=== PATIENT | male | born 1945 | race Caucasian/White ===

== ENCOUNTER 2018-01-08 17:50 | Inpatient (IN) | payer MEDICARE, OTHER ==
[~2018-01-08] VITALS: Ht 172.7 cm; Wt 63.5 kg
[2018-01-08 18:40] VITALS: BP 146/112
--- NOTE | 2018-01-08 18:40 | NUR ---
PRE ASSESSMENT: A 72 YO male in intake. He presents restless and fidgety. He reports chills restlessness and anxiety. He states he had an accidental overdose on Methadone on 01/03 in the afternoon and is unsure how much he took PO. He states he woke up on a 5150 at [facility] and came here tonight straight from from the hospital. He states he uses 40-80 mg Methadone daily for the last 6 months He states he uses Xanax or Valium daily PO but hasn't used either since 01/02 in the afternoon. He has used Heroin since the 70s and has not used Heroin in 10 years.Prior to the Methadone use for the he has been using Opiates in pill form and Subutex. He also reports using the Valium or Xanax for the last 10 years. He states they gave him Ativan and [place] in the hospital. Last doses in AM on 01/07/18. He denies any other drug use. He denies Sz history. He denies DT hx. He reports HTN. Will endorse admission to assistant shift supervisor nurse.
[2018-01-08] MEDS ORDERED: LORAZEPAM 2 MG/1 ML VIAL IM PRN (18:45)
[2018-01-08] MEDS ORDERED: DIAZEPAM 5 MG TABLET PO PRN (18:45)
[2018-01-08] MEDS ORDERED: diphenhydrAMINE 50 MG CAPSULE PO PRN (18:45)
[2018-01-08] MEDS ORDERED: MIRALAX 17 GM POWD.PACK PO PRN (18:45)
[2018-01-08] MEDS ORDERED: MAGNESIUM HYDROXIDE 30 ML LIQUID UDC PO PRN (18:45)
[2018-01-08] MEDS ORDERED: HYDROXYZINE PAMOATE 25 MG CAPSULE PO PRN (18:45)
[2018-01-08] MEDS ORDERED: MAG HYDROX/AL HYDROX/SIMETH 30 ML LIQUID UDC PO PRN (18:45)
[2018-01-08] MEDS ORDERED: BUPRENORPHINE HCL 2 MG TAB.SUBL SL PRN (18:45)
[2018-01-08] MEDS ORDERED: DIAZEPAM 10 MG TABLET PO PRN (18:45)
[2018-01-08] MEDS ORDERED: ACETAMINOPHEN 325 MG TABLET PO PRN (18:45)
[2018-01-08] MEDS ORDERED: LOPERAMIDE HCL 2 MG CAPSULE PO PRN ×2 (18:45)
--- NOTE | 2018-01-08 19:30 | NUR ---
ADMISSION NOTE: Patient is a 72 y.o male admitted at [facility] at approximately 1840pm of 01/08/18 for medically supervised withdrawal from Methadone, Valium & Xanax use. Body search done and skin check performed by day shift nurse, no contraband found. Skin noted to be intact. Patient is oriented to floor unit and room. Patient is on a cardiac diet with no known food and drug allergies. Pt wishes to be full Code. Pt is noted to be moderately withdrawing from substances. Patient is alert & oriented x3, ambulatory with a steady gait. Speech is soft, clear and audible. Patient presented with a flushed face, worried affect, and anxious and depressed mood. Pt has poor eye contact and poor concentration. Skin is moist/clammy. He complains of chills, 8/10 generalized body aches, stuffy nose, diarrhea & fine tremors. Pt denies halluciantions, no chest pain noted at this time. COWS 16 CIWA 16 upon assessment. Pt has a primary care physician Dr. Dc. Pt reports medical history such as Depression, Hypertension, Chronic Back pain, Scoliosis, & Hx of Hepatits C but has been treated for it. Pt denies hx of withdrawal induced seizure. No history of DT's. Pt denies hx of suicide attempt but according to [facility] discharge Notes, pt attempted suicide by overdosing from methadone use on 01/03/18 and then was placed on 5150 psychiatric hold. Pt currently denies SI/HI. Pt was able to provide urine sample for drug screen upon admission. Substance use: 1. Methadone- Pt stated that he first had Methadone at around 21 yrs old. Patient uses 40-80mg of Methadone daily for the past 6 months. Last use was on 01/03/18 where he used over 100mg of Methadone and overdosed. 2. Xanax/Valium- Pt stated that in the past 10 years, pt has been taking either Xanax 2mg or Valium 10mg alternately whichever is available daily. He last used Valium 10mg on 01/02/18. 3. [place]- Pt was medicated with [place] 10/325 mg while in [facility]. He last took 1 tab of [place] 10/325 on 01/07/18. 4. Ativan- Pt was medicated with Ativan 1mg tab while in [facility]. He last took Ativan on 01/07/18. Pt stated that she decided to come to treatment because "I accidentally overdosed from Methadone and woke up on a 5150 hold, I am here because I don't want to ". Per pt, the consequences from using were "relationship going south, financial problems and overdoses". His last treatment was back in 1975 at [facility] [place]. Per patient, his longest period of sobriety was 3 years from 8823-2016. Patient is an occasional smoker and only smokes 1-2 cigarrettes at a time. Fall & Seizure precautions are in place. Will attend to all needs. Educated patient about plan of care including detox, group therapy, individual therapy, and discharge planning. Encouraged patient to verbalized feelings. Safety precautions are in place. Bed locked in lowest position. Both side rails padded & up. Call light within pt's reach. Will continue to monitor.
[2018-01-08] MEDS: CLONIDINE HCL 0.1 MG TABLET PO PRN (19:45)
[2018-01-08] MEDS: IBUPROFEN 600 MG TABLET PO PRN (19:45)
--- NOTE | 2018-01-08 19:45 | NUR ---
PRN Administration Pt presented appears anxious & restless in bed and reports withdrawal symptoms such as sweating, chills, anxiety, agitation, fine tremors, diarrhea & myalgia. COWS 16 CIWA 16 at this time. PRN Clonidine 0.1mg, Valium 20mg, Motrin 600mh & Immodium 4mg administered as ordered. Safety measures in place. Pt kept comfortable. Will monitor for effectiveness of medication.
[2018-01-08 20:00] VITALS: BP 145/78
[2018-01-08] MEDS ORDERED: BUPRENORPHINE HCL 2 MG TAB.SUBL SL ONE (20:45)
[2018-01-08] MEDS: MIRTAZAPINE 15 MG TABLET PO SCH (20:45)
--- NOTE | 2018-01-08 20:45 | NUR ---
MD Communication Pt was seen by Dr. Guerrero with orders to give Subutex 2mg SL for COWS of 16. Pt presented with withdrawal symptoms such as sweating, chills, anxiety, agitation, restlessness, myalgia, stuffy nose, diarrhea & fine tremors. Orders noted and carried out. Will continue to monitor patient.
[2018-01-08 20:47] LABS: *AMPHETAMINE, URINE NEGATIVE (NEGATIVE); *BARBITURATE, URINE NEGATIVE (NEGATIVE); *CANNABINOID, URINE NEGATIVE (NEGATIVE); *COCCAINE, URINE NEGATIVE (NEGATIVE); *OPIATE, URINE POSITIVE (NEGATIVE); *PHENCYCLIDINE SCREEN,URINE NEGATIVE (NEGATIVE)
--- NOTE | 2018-01-08 21:45 | NUR ---
PRN Reassessment Patient laying in bed and reported slight decreased in anxiety and decreased in body aches from 01/18 to 11/18 after medication administration. Safety measures in place. will continue to monitor patient.
[2018-01-08 23:29] LABS: BASOPHILS # (AUTO) 0.1 K/uL (0.0-8.0); BASOPHILS % (AUTO) 0.9 % (0.0-2.0); EOSINOPHILS # (AUTO) 0.1 K/uL (0.0-0.7); EOSINOPHILS % (AUTO) 1.6 % (0.0-7.0); HEMOGLOBIN 13.8 g/dL (12.5-16.3); LYMPHOCYTES # (AUTO) 2.3 K/uL (20.0-40.0); LYMPHOCYTES % (AUTO) 26.9 % (20.5-51.5); MEAN CORPUSCULAR HEMOGLOBIN 32.7 uug (23.8-33.4); MEAN CORPUSCULAR HGB CONC 35 g/dL (32.5-36.3); MEAN CORPUSCULAR VOLUME 92.4 fL (73.0-96.2); MONOCYTES # (AUTO) 0.6 K/uL (2.0-10.0); MONOCYTES % (AUTO) 6.7 % (0.0-11.0); NEUTROPHILS # (AUTO) 5.4 K/uL (1.8-8.9); NEUTROPHILS % (AUTO) 63.9 % (38.5-71.5); PLATELET COUNT (AUTO) 152 K/uL (152-348); RED BLOOD CELL COUNT(AUTO) 4.22 MIL/uL (4.06-5.63); WHITE BLOOD COUNT (AUTO) 8.4 K/uL (3.6-10.2)
[2018-01-08 23:49] LABS: ALANINE AMINOTRANSFERASE 26 U/L (16-63); ALKALINE PHOSPHATASE 46 U/L (50-136); AMYLASE 145 U/L (25-115); ASPARTATE AMINOTRANSFERASE 13 U/L (15-37); BILIRUBIN,TOTAL 0.4 mg/dL (0.2-1.0); CARBON DIOXIDE 25 mmol/L (21-32); CHLORIDE 104 mmol/L (98-107); CREATININE 1.2 mg/dL (0.6-1.3); GLUCOSE 178 mg/dL (74-106); LIPASE 576 U/L (73-393); MAGNESIUM 2.2 mg/dL (1.8-2.4); POTASSIUM 3.4 mmol/L (3.5-5.1); TOTAL PROTEIN, SERUM 6.8 g/dL (6.4-8.2); UREA NITROGEN, BLOOD 17 mg/dL (7-18)
[2018-01-08 23:50] LABS: ETHANOL < 3 MG/DL (0-0)
[2018-01-08] MEDS: METHOCARBAMOL 750 MG TABLET PO PRN (23:52)
[2018-01-08] MEDS: DIAZEPAM 10 MG TABLET PO PRN (23:52)
--- NOTE | 2018-01-08 23:52 | NUR ---
PRN Administration/ Assessment Pt still awake at this time. He appears restless and anxious in bed. Per pt, he has trouble sleeping d/t withdrawal symptoms and anxiety. Pt presented with sweating, chills, stuffy nose, 7/10 generalized body aches, & fine tremors. He reported another episode of diarrhea. COWS 14 CIWA 15 noted at this time. PRN Valium 10mg, Robaxin 750mg, Benadryl 50mg & Immodium 2mg administered as ordered. Safety measures in place. Will continue to monitor patient.
[2018-01-09] VITALS: BP_SYST 144; BP_SYST 89; BP_DIAS 56; BP_DIAS 97
[2018-01-09] MEDS ORDERED: MIRT15TA PO (00:49)
[2018-01-09] MEDS ORDERED: METO25TA6 PO (00:49)
[2018-01-09] MEDS ORDERED: LISI40TA4 PO (00:49)
[2018-01-09] MEDS ORDERED: GABA-532 PO (00:49)
--- NOTE | 2018-01-09 00:52 | NUR ---
PRN Reassessment patient appears less anxious and agitated in bed. Pt verbalized decreased in anxiety, sweating, chills and bodyaches from 12/18 to 10/18 after medication administration. Pt still presented with stuffy nose & fine tremors. Safety measures in place. Will continue to monitor patient.
[2018-01-09] MEDS ORDERED: TRAZODONE 50 MG TABLET PO ONE ×2 (01:30→22:00)
[2018-01-09] MEDS: IBUPROFEN 600 MG TABLET PO PRN (07:10)
--- NOTE | 2018-01-09 07:15 | NUR ---
PRN Subutex and Motrin Patient presented with sweating, chills, restlessness, fine tremors, stuffy nose & 8/10 generalized body aches. COWS 14 noted. PRN Subutex and Motrin administered as ordered. Safety measures in place. Will continue to monitor.
--- NOTE | 2018-01-09 07:30 | NUR ---
End of Shift Note: Pt is a 72 y.o male admitted yesterday for medically supervised withdrawals from Opiate and Benzo use. Patient is alert & oriented x3. He was placed on a 5-day Subutex and 5-day Valium taper to be started today. PRN's are available for s/s of withdrawal. Pt presented with withdrawal symptoms such as sweating, chills, anxiety, agitation, stuffy nose, diarrhea, fine tremors & myalgia. Last COWS CIWA 15. He received PRN Clonidine 0.1, Valium 20mg, Motrin 600mg, Immodium 2x, Valium 10mg, Robaxin 750mg, & Benadryl 50mg during my shift. All PRN's were effective. Pt remained stable and vitals remained WNL. Pt slept for a total of 4 hours. Voided 3x with no BM noted. Safety measures in place. Will dicuss all pertinent information to incoming nurse. Addendum: 01/09/18 at 0731 by PANCHO LOWERY RN Pt noted with 2 loose BM during my shift. WIll continue to monitor BM.
[2018-01-09 08:00] VITALS: BP 111/65
--- NOTE | 2018-01-09 08:05 | NUR ---
START OF SHIFT: Received Pt A/O X 4 laying in bed,rocking back and forth. He is fidgety. He presents with anxious mood and congruent affect. He reports a restless night with very little sleep last night. He reports chills,sweats,restlessness,body aches,diarrhea and irritability. K was 3.4. Replaced this AM with 40 meq PO. Valium and Subutex taper in progress to manage s/s of w/d COWS 14 CIWA 16. MRSA swab of nares collected and sent to lab. He refused PPD. Encouraged increased fluids to promote hydration and bed rest today. Will continue to provide safe and supportive environment and manage s/s of w/d.
[2018-01-09] MEDS: MULTIVITAMINS,THERAPEUTIC TABLET PO SCH (08:07)
[2018-01-09] MEDS: DIAZEPAM 10 MG TABLET PO SCH ×4 (08:08→20:34)
[2018-01-09] MEDS: FOLIC ACID 1 MG TABLET PO SCH (08:08)
[2018-01-09] MEDS: THIAMINE HCL 100 MG TABLET PO SCH (08:09)
[2018-01-09] MEDS ORDERED: 5 DAY TAPER BUPRENORPHINE -SERENITY PROTOCOL SL PRN (09:00)
[2018-01-09] MEDS ORDERED: POTASSIUM CHLORIDE 20 MEQ TAB.PRT.SR PO ONE (09:00)
[2018-01-09] MEDS ORDERED: 5 DAY TAPER VALIUM-SERENITY PROTOCOL PO PRN (09:00)
[2018-01-09] MEDS ORDERED: TUBERCULIN,PURIF.PROT.DERIV. 5 TU/0.1 ML TEST ID ONE (09:00)
--- NOTE | 2018-01-09 09:10 | NUR ---
CLARIFICATION: Received Pt chart from [facility]. Pt received [place] 5/325 mg po Q 4 hrs from 01/04-01/07 in AM and Ativan 1 mg PO Q 4 hrs from 01/04-01/07 in AM.
[2018-01-09] MEDS: BUPRENORPHINE HCL 2 MG TAB.SUBL SL SCH ×4 (09:37→20:34)
[2018-01-09] MEDS: DIAZEPAM 10 MG TABLET PO PRN (11:24)
--- NOTE | 2018-01-09 11:25 | NUR ---
PRN Valium 10 mg PO given to manage s/s of w/d . He reports severe anxiety,restlessness and skin crawling. He is fidgety. CARMEN 15. Will monitor effectiveness of PRN med.
[2018-01-09] MEDS: DICYCLOMINE HCL 20 MG TABLET PO PRN ×2 (11:42→20:34)
--- NOTE | 2018-01-09 11:45 | NUR ---
PRN Bentyl given for reported stomach cramps. Will monitor effectiveness.
[2018-01-09 12:00] VITALS: BP 118/64
--- NOTE | 2018-01-09 12:25 | NUR ---
PRN Valium effective AEB CIWA 11. Pt states he feels more comfortable.
--- NOTE | 2018-01-09 12:45 | NUR ---
PRN Bentyl effective. He states his stomach cramps have lessened.
[2018-01-09] MEDS: LISINOPRIL 20 MG TABLET PO SCH (15:05)
[2018-01-09] MEDS ORDERED: Medication Not On Formulary EA (Lisinopril 40 MG) PO SCH (15:15)
[2018-01-09] MEDS: METOPROLOL TARTRATE 25 MG TABLET PO SCH ×2 (15:15→20:34)
[2018-01-09 15:46] LABS: CREATININE 1.2 mg/dL (0.6-1.3); MAGNESIUM 2.1 mg/dL (1.8-2.4); POTASSIUM 3.9 mmol/L (3.5-5.1)
[2018-01-09 16:00] VITALS: BP 90/50
[2018-01-09] MEDS: GABAPENTIN 100 MG CAPSULE PO SCH (16:47)
--- NOTE | 2018-01-09 18:44 | NUR ---
END OF SHIFT: Pt continues on Valium/Subutex taper to manage s/s of w/d which include anxiety,body aches,stomach cramps,chills sweats and irritability. He presents with anxious mood and congruent affect. He reports some hopelessness but denies S/I and H/I. New order for antihypertensives but held due to low BP 90/50. Last CIWA 14 Last COWS 14. He was given PRN Valium this Am and PRN Bentyl to assist in managing anxiety and stomach cramps and they were effective. His appetite is fair. he was compliant with increased fluids but did not sleep on this shift. Will pass shift report to [facility] night nurse.
--- NOTE | 2018-01-09 19:30 | NUR ---
START OF SHIFT Received 72 year old male patient admitted on 01/08/18 for Methadone and Benzodiazepine withdrawal. Pt is alert and oriented x4. He reports body aches, anxiety, restlessness, abdominal cramps, chills, sweats, and insomnia. He is currently receiving a 5 day Subutex and 5 day Valium taper and is tolerating well. Per endorsement, he received PRN Bentyl and Valium. Last COWS:14, CIWA:14 at 1600. Breathing is even and unlabored, safety measures in place. Will monitor.
[2018-01-09 20:00] VITALS: BP 95/62
--- NOTE | 2018-01-09 20:00 | NUR ---
COWS/CIWA Pt reports anxiety, abdominal cramps, agitation, restlessness, body aches, chills and sweats. COWS:12, CIWA:14 prior to administration of 2100 medications. Will continue to monitor.
[2018-01-09] MEDS: MIRTAZAPINE 15 MG TABLET PO SCH (20:34)
--- NOTE | 2018-01-09 20:34 | NUR ---
PRN BENTYL Pt complains of abdominal cramps. PRN Bentyl administered as ordered. Will monitor effectiveness
--- NOTE | 2018-01-09 20:35 | NUR ---
NON ADMINISTERED MEDICATION Scheduled dose of Lopressor 25 mg held d/t decreased BP 95/62, HR: 68. Denies dizziness/lightheadedness. Will continue to monitor.
--- NOTE | 2018-01-09 21:34 | NUR ---
PRN BENTYL REASSESSMENT PRN medication effective. Pt reports decrease in abdominal cramps. Safety measures in place. Will monitor.
--- NOTE | 2018-01-09 22:05 | NUR ---
ONE TIME TRAZODONE Pt complains of insomnia. One time trazodone 50 mg administered as ordered. Will monitor effectiveness.
--- NOTE | 2018-01-09 23:05 | NUR ---
TRAZODONE REASSESSMENT Trazodone is effective. Pt is lying in bed with eyes closed and is noted to be asleep. Breathing is even and unlabored, safety measures in place. Will monitor.
[2018-01-10 00:15] VITALS: BP 89/56
--- NOTE | 2018-01-10 00:15 | NUR ---
COWS/CIWA DEFERRED Pt is lying in bed with eyes closed noted to be asleep. Breathing is even and unlabored, safety measures in place. Will continue to monitor.
[2018-01-10 04:01] VITALS: BP 94/53
--- NOTE | 2018-01-10 04:02 | NUR ---
COWS/CIWA DEFERRED 0400 COWS and CIWA deferred d/t pt lying in bed with eyes closed and is noted to be asleep. Breathing is even and unlabored, safety measures in place. Will continue to monitor.
--- NOTE | 2018-01-10 07:19 | NUR ---
END OF SHIFT Pt is a 72 year old male patient admitted on 01/08/18 for Methadone and Benzodiazepine withdrawal. Pt remains alert and oriented x4. He complained of body aches, anxiety, restlessness, abdominal cramps, chills, sweats, and insomnia during the shift. He continues on a 5 day Subutex and 5 day Valium taper and is tolerating well. At 2033 he received PRN Bentyl. His 2100 dose of Lopressor was held d/t decreased BP. He received one time Trazodone at 2204 for insomnia. He slept a total of 7 hrs, Intake: 650mL, Void: x2, BM:x1, COWS 12, CIWA:14 at 1999. Breathing is even and unlabored, safety measures in place. Endorsed to AM shift.
[2018-01-10 08:00] VITALS: BP 121/61
--- NOTE | 2018-01-10 08:05 | NUR ---
START OF SHIFT: Received Pt A/O X 4 He is fidgety and appears restless. He presents with anxious mood and congruent affect. He reports very good sleep last night with the help of Trazodone. He reports chills,sweats,restlessness,body aches. Redness noted to cheek area. He states stress causes his rosacea to flare up. He states it feels irritated and reports discomfort.Valium and Subutex taper in progress to manage s/s of w/d COWS 11 CIWA 13. Encouraged increased fluids to assist in facilitating detox process. Encouraged group attendance to improve coping skills and prevent relapse. Will continue to provide safe and supportive environment and manage s/s of w/d.
[2018-01-10] MEDS: DIAZEPAM 10 MG TABLET PO SCH ×3 (08:11→20:35)
[2018-01-10] MEDS: THIAMINE HCL 100 MG TABLET PO SCH (08:12)
[2018-01-10] MEDS: GABAPENTIN 100 MG CAPSULE PO SCH ×3 (08:12→17:52)
[2018-01-10] MEDS: FOLIC ACID 1 MG TABLET PO SCH (08:12)
[2018-01-10] MEDS: MULTIVITAMINS,THERAPEUTIC TABLET PO SCH (08:12)
[2018-01-10] MEDS: BUPRENORPHINE HCL 2 MG TAB.SUBL SL SCH ×3 (08:12→20:36)
[2018-01-10] MEDS: METOPROLOL TARTRATE 25 MG TABLET PO SCH ×2 (09:22→21:00)
[2018-01-10] MEDS: LISINOPRIL 20 MG TABLET PO SCH (09:23)
[2018-01-10 10:10] LABS: HEPATITIS B SURFACE AG Negative (Negative)
[2018-01-10] MEDS: IBUPROFEN 600 MG TABLET PO PRN (10:24)
[2018-01-10] MEDS: DICYCLOMINE HCL 20 MG TABLET PO PRN ×2 (10:24→20:47)
[2018-01-10] MEDS: METHOCARBAMOL 750 MG TABLET PO PRN ×2 (10:24→20:47)
--- NOTE | 2018-01-10 10:25 | NUR ---
PRN Motrin,PRN Bentyl and PRN Robaxin given as ordered as pt c/o muscle cramps, stomach cramps and generalized body pain. Will monitor effectiveness of PRN meds.
--- NOTE | 2018-01-10 11:25 | NUR ---
Pt states the PRN meds were mildly effective. He states the body pain,muscle cramps and stomach cramps have lessened.
[2018-01-10 12:00] VITALS: BP 90/60
--- NOTE | 2018-01-10 14:32 | NUR ---
Client was prompted to attend group therapy sessions. Client stated he is feeling physically unwell today however would try to attend tomorrow.
[2018-01-10 16:00] VITALS: BP 91/61
--- NOTE | 2018-01-10 18:29 | NUR ---
END OF SHIFT: Pt continues on Valium/Subutex taper to manage s/s of w/d which include anxiety,body aches,stomach cramps,chills sweats and irritability. He presents with depressed mood and congruent affect. He denies S/I and H/I. Last CIWA 10 Last COWS 11. He was given PRN Motrin, Robaxin and Bentyl to assist in managing body aches and stomach cramps and they were effective. His appetite is better. he was compliant with increased fluids and slept on and off most of shift. He did not attend groups. Will pass shift report to [facility] night nurse.
--- NOTE | 2018-01-10 19:30 | NUR ---
START OF SHIFT Received 72 year old male patient admitted on 01/08/18 for Methadone and Benzodiazepine withdrawal. Pt is alert and oriented x4. He complains of body aches, chills, sweats, and abdominal cramps. He continues on a 5 day Subutex and 5 day Valium taper and is tolerating well. Per endorsement, he received PRN Robaxin, Bentyl, and Motrin. He also received a new order for Trazodone PRN. Last COWS:11, CIWA:10 at 1600. Breathing is even and unlabored, safety measures in place. Will monitor.
[2018-01-10 20:00] VITALS: BP 128/65
--- NOTE | 2018-01-10 20:00 | NUR ---
COWS/CIWA Pt complains of body aches, chills, anxiety, sweats, abdominal cramps and insomnia. COWS:11, CIWA:13. Will monitor.
--- NOTE | 2018-01-10 20:30 | NUR ---
MEDICATION HELD 2100 dose of Lopressor 25 mg held d/t decreased HR: 60. BP:128/65. Will monitor.
[2018-01-10] MEDS: MIRTAZAPINE 15 MG TABLET PO SCH (20:34)
--- NOTE | 2018-01-10 20:47 | NUR ---
PRN ROBAXIN/BENTYL Pt complains of 7/10 body aches and abdominal cramps. PRN Robaxin and Bentyl administered as ordered. Safety measures in place. Will continue to monitor effectiveness.
--- NOTE | 2018-01-10 21:47 | NUR ---
PRN ROBAXIN/BENTYL REASSESSMENT Medication was effective. Pt. reports decreased body aches and abdominal cramps. Will continue to monitor.
[2018-01-10] MEDS: TRAZODONE 50 MG TABLET PO PRN (22:02)
--- NOTE | 2018-01-10 22:02 | NUR ---
PRN TRAZODONE Pt complains of difficulty falling asleep. PRN Trazodone administered as ordered. Safety measures in place. Will monitor.
--- NOTE | 2018-01-10 23:02 | NUR ---
PRN TRAZODONE REASSESSMENT PRN medication effective. Pt is lying in bed with eyes closed and is noted to be asleep. Breathing is even and unlabored, safety measures in place. Will monitor.
[2018-01-11] VITALS: BP 92/54
--- NOTE | 2018-01-11 | NUR ---
COWS/CIWA DEFERRED 0000 COWS and CIWA deferred d/t pt lying in bed with eyes closed noted to be asleep. Breathing is even and unlabored, safety measures in place. Will monitor.
--- NOTE | 2018-01-11 04:00 | NUR ---
COWS/CIWA DEFERRED 0400 COWS and CIWA deferred d/t pt. asleep. breathing even and unlabored, safety measures in place. will continue to monitor.
[2018-01-11 05:12] VITALS: BP 89/47
--- NOTE | 2018-01-11 07:03 | NUR ---
END OF SHIFT Pt is a 72 year old male patient admitted on 01/08/18 for Methadone and Benzodiazepine withdrawal. He remains alert and oriented x4. He had complaints of body aches, restlessness, chills, sweats, insomnia and abdominal cramps during the shift. He continues on a 5 day Subutex and 5 day Valium taper and is tolerating well. His 2099 dose of Lopressor was held d/t decreased HR:60. At 2046 he received PRN Robaxin and Bentyl, at 2201 he received PRN Trazodone. He slept a total of 9 hrs, Intake: 1,000mL, Void: x2, BM:0. Last COWS:11, CIWA:13 at 1999. Breathing is even and unlabored, safety measures in place. Endorsed to AM shift.
--- NOTE | 2018-01-11 07:30 | NUR ---
Start of Shift Notes: Received patient in his room. Awake, alert and verbally responsive. Oriented x 4. He appears anxious m/b restlessness while in bed. He complains of muscle/joint aches of 7/10. He is seen rubbing his calves and stretching his legs. He appears disheveled and unkempt. Patient was encouraged to shave and shower. Maintenance of personal hygiene and space was encouraged. Patient is a 72 year old male admitted for opiate and benzo withdrawal who was placed on a 5-day Subutex and 5-day Valium taper as ordered. Educated patient on his current plan of care for the day and his medication regimen. Encouraged oral fluid intake and encouraged group participation to learn new skills to prevent relapse. Per night report, patient received Robaxin, Bentyl and Trazodone during the night. Sept for 9 hours. COWS 11/CIWA 13. Will continue to monitor.
[2018-01-11 08:00] VITALS: BP 113/60
[2018-01-11] MEDS: METOPROLOL TARTRATE 25 MG TABLET PO SCH ×2 (08:39→20:51)
[2018-01-11] MEDS: LISINOPRIL 20 MG TABLET PO SCH (08:39)
[2018-01-11] MEDS: THIAMINE HCL 100 MG TABLET PO SCH (08:39)
[2018-01-11] MEDS: DIAZEPAM 5 MG TABLET PO SCH ×4 (08:39→20:47)
[2018-01-11] MEDS: METHOCARBAMOL 750 MG TABLET PO PRN ×2 (08:39→20:47)
--- NOTE | 2018-01-11 08:39 | NUR ---
COWS 17/CIWA 16/PRN Robaxin 750 mg PO given. Patient presented with gross tremors, anxiety, restlessness, pupil dilation, myalgia, joint aches, rubbing legs, nasal stuffiness, abdominal cramping, anxiety, agitation, intermittent perspiration, mild headache, tactile stimulation, paresthesia and anhedonia. Medicated patient with Robaxin 750 mg PO as ordered. Will monitor for effectiveness.
[2018-01-11] MEDS: GABAPENTIN 100 MG CAPSULE PO SCH ×3 (08:40→17:19)
[2018-01-11] MEDS: FOLIC ACID 1 MG TABLET PO SCH (08:40)
[2018-01-11] MEDS: MULTIVITAMINS,THERAPEUTIC TABLET PO SCH (08:40)
[2018-01-11] MEDS ORDERED: BUPRENORPHINE HCL 2 MG TAB.SUBL SL SCH (09:00)
--- NOTE | 2018-01-11 09:01 | NUR ---
Transfer of care: Transferred care to the patient at this time. All pertinent information discussed. Will continue to monitor.
--- NOTE | 2018-01-11 09:02 | NUR ---
ENDORSEMENT Pt endorsed to me by nurse. All information received.
[2018-01-11] MEDS: DICYCLOMINE HCL 20 MG TABLET PO PRN (09:24)
--- NOTE | 2018-01-11 09:27 | NUR ---
PRN BENTYL Compliants of stomach cramps. Bentyl po prn per MD order given and tolerated well.
--- NOTE | 2018-01-11 09:39 | NUR ---
PRN MAMIE EVAL States aches are 4/10.
--- NOTE | 2018-01-11 10:27 | NUR ---
PRN CHERRY CRUM Denies any stomach cramps at this time. States medication was effective.
[2018-01-11 12:00] VITALS: BP 119/68
[2018-01-11] MEDS: IBUPROFEN 600 MG TABLET PO PRN (12:03)
--- NOTE | 2018-01-11 12:05 | NUR ---
PRN MOTRIN States has generalized pain 5/10. Motrin po prn per MD order given and tolerated well.
--- NOTE | 2018-01-11 12:30 | NUR ---
ENDORSEMENT Endorsed pt to nurse. All information given.
--- NOTE | 2018-01-11 12:31 | NUR ---
Assumed Care: Assumed care for the patient at this time. All pertinent information discussed.
--- NOTE | 2018-01-11 12:35 | NUR ---
/ Assessment: /, patient continues to present with gross tremors, mild headache, irritability, anxiety, agitation, abdonial cramping, paresthesia and anhedonia. She continues to appears disheveled and unkempt with poor regards to hygiene. Encouraged maintenance of personal hygiene and space. Offered support. Will continue to monitor. Addendum: 01/11/18 at 1333 by MARSHALL ALICIA LVN Noted clarified. .
[2018-01-11] MEDS: DOXYCYCLINE HYCLATE 100 MG TABLET PO SCH (13:02)
--- NOTE | 2018-01-11 13:05 | NUR ---
Re-assessment: Peggyrin Patient verbalizes relief from generalized aching. PL is now 2/10.
[2018-01-11] MEDS: BUPRENORPHINE HCL 2 MG TAB.SUBL SL SCH ×2 (14:22→20:47)
[2018-01-11 16:00] VITALS: BP 125/78
[2018-01-11 16:04] LABS: BILIRUBIN,TOTAL 0.3 mg/dL (0.2-1.0); CREATININE 1.2 mg/dL (0.6-1.3); POTASSIUM 4.9 mmol/L (3.5-5.1); TOTAL PROTEIN, SERUM 5.8 g/dL (6.4-8.2)
--- NOTE | 2018-01-11 17:00 | NUR ---
COWS/CIWA Assessment: Patient continues to present with gross tremors, intermittent perspiration, myalgia, restlessness, chills, and hot flashes. COWS 11/CIWA 13. Offered PRNs. Support provided. Will continue to monitor.
--- NOTE | 2018-01-11 19:00 | NUR ---
End of Shift Notes: Patient continues to be on 5-day Subutex and 5-day Valium taper as ordered. No adverse reactions noted. VS monitored closely. No significant abnormalities noted. Withdrawal symptoms were closely monitored. Initial COWS 17/CIWA 16, patient presented with facial flushing, diaphoresis, restlessness, gross tremors, bone/joint aches, myalgia, pupil dilation, nasal stuffiness, abdominal cramping, anxiety, agitation, headache, paresthesia, and anhedonia. Medicated patient with Robaxin, Bentyl and Motrin as ordered with help. Last COWS /CIWA 13. Patient was started on Doxycycline as ordered for facial rosacea as ordered. Oral fluids encouraged. Patient was unable to participate in group and activities due to his withdrawal symptoms. All needs met and attended. Will continue to monitor closely.
[2018-01-11 20:00] VITALS: BP 105/56
--- NOTE | 2018-01-11 20:00 | NUR ---
W/D scoring COWS 9, CIWA 13, aeb agitation and restlessness, anhedonia, anxiety, diaphoresis, depression, difficulty concentrating, fatugue and malaise, flushed face, generalized discomfort and restless legs.
--- NOTE | 2018-01-11 20:00 | NUR ---
Start of Shift Endorsement received from day nurse. Pt admitted on 01/08/18 for medically managed withdrawal from Methadone and Benzodiazapines. Pt listed as a full code with NKAs and on a cardiac diet. Pt presents with c/o anxiety, restlessness and agitation, B/As and generalized discomfort, diaphoresis, depression, difficulty concentrating, fatigue and malaise. Pt denies SI/HI, A/V/T hallucinations. Pt appears depressed and anxious, thoughts loose/tangential, presents with agitation. Rates pain as 7/10 primarily for restless legs. Room is disheveled with empty food and drink containers laying about, pt with uncombed hair, unshaven with poor dental hygiene. Odor in room. Pt educated about w/d s/sxs and disease process. Will continue to monitor pt for duration of shift promptly attending to all s/sxs w/d or distress.
--- NOTE | 2018-01-11 20:47 | NUR ---
PRN Med Robaxin 750mg PO given for B/A's, generalized discomfort 12/18. Will continue to monitor and reassess in 1 hour.
[2018-01-11] MEDS: MIRTAZAPINE 15 MG TABLET PO SCH (20:49)
--- NOTE | 2018-01-11 21:00 | NUR ---
Med Withheld Pt BP 102/56, HR 56. Lopressor 25mg PO withheld. Will continue to monitor and attend to all s/sx's w/d or distress promptly
--- NOTE | 2018-01-11 21:47 | NUR ---
PRN Reassessment Robaxin 750mg PO given for B/A's, generalized discomfort 7/10 1 hour prior. At present pt is sleeping, RR 16, even and nonlabored. Med effective.
[2018-01-12] VITALS: BP 124/62
--- NOTE | 2018-01-12 | NUR ---
Midnight Rounds VS's obtained and stable. COWS and CIWA deferred r/t pt somnalence. Will continue to monitor and promptly attend to all s/sx's w/d or distress.
[2018-01-12 04:00] VITALS: BP 121/82
--- NOTE | 2018-01-12 04:00 | NUR ---
0400 Rounds VS's obtained, pt febrile with T 101.3. COWS and CIWA deferred r/t pt somnalence. Will continue to monitor and promptly attend to all s/sx's w/d or distress.
--- NOTE | 2018-01-12 04:29 | NUR ---
PRN Med Pt febrile with Temp of 101.3, Tylenol 650mg PO given. Will continue to monitor, reassessing in 1 hour.
--- NOTE | 2018-01-12 05:29 | NUR ---
PRN Reassessment Tylenol 650mg PO given 1 hour prior for T 101.3. Currently pt T is 102.1. will reassess in 1 hour and continue to monitor. Addendum: 01/12/18 at 0545 by ARIADNA HASSAN RN Correction: Current pt T is 101.1. Med effective
[2018-01-12] MEDS: IBUPROFEN 600 MG TABLET PO PRN (06:04)
--- NOTE | 2018-01-12 06:04 | NUR ---
PRN Med Motrin 600mg PO given for H/A, 10/18, Will continue to monitor and reassess in 1 hour.
--- NOTE | 2018-01-12 06:07 | NUR ---
Reassessment T reduced to 99.1. Med and cooling measures (i.e. reduction in blankets, ice pack) effective.
--- NOTE | 2018-01-12 07:04 | NUR ---
PRN Reassessment Motrin 600mg PO given 1 hour prior for H/A. At present pt is sleeping, RR 16, even and nonlabored. med effective.
--- NOTE | 2018-01-12 07:22 | NUR ---
End of Shift Endorsement given to day nurse. Pt admitted on 01/08/18 for medically managed withdrawal from Methadone and Benzodiazapines. Pt listed as a full code with NKAs and on a cardiac diet. PRNs for shift included Benedryl , Clonidine and Robaxin early in evening, Tylenol in am for T 101.3, Motrin for H/A. Pt slept for 6 hours with 1291 mls intake and 2 voids. Pt appears in improve mood but remains worried and sad looking, disheveled/unshaven /odorous. Appetite improved, hydration encouraged and remains inadequate. Room remains unkempt. T down to 99.1 at 0605.
--- NOTE | 2018-01-12 07:48 | NUR ---
Start of Shift Notes: Received patient in his room. Awake, alert and verbally responsive. Oriented x 4. He appears anxious m/b restlessness while in bed, constantly asking questions about his care. He complains of generalized muscle/joint aches of 7/10. He appears disheveled and unkempt and odorous. Patient was encouraged to shave and shower. Maintenance of personal hygiene and space was encouraged. Patient is a 72 year old male admitted for opiate and benzo withdrawal who was placed on a 5-day Subutex and 5-day Valium taper as ordered. Educated patient on his current plan of care for the day and his medication regimen. Encouraged oral fluid intake and encouraged group participation to learn new skills to prevent relapse. Per night report, patient received Benadryl, Clonidine, Robaxin and Tylenol for fever and body aches during the night. Sept for 6 hours. COWS 9/CIWA 13. Will continue to monitor.
[2018-01-12 08:00] VITALS: BP 117/67
--- NOTE | 2018-01-12 08:00 | NUR ---
COWS/CIWA Assessment: COWS 15/CIWA 15 patient presented with gross tremors, facial flushing, intermittent perspiration, chills, hot flashes, malaise, fatigue, generalized discomfort, joint aches, dyspepsia, anxiety/agitataion and increased emotional amplitude. Will medicate patient as ordered. MD aware of patient's CIWA score.
[2018-01-12] MEDS: MULTIVITAMINS,THERAPEUTIC TABLET PO SCH (08:34)
[2018-01-12] MEDS: THIAMINE HCL 100 MG TABLET PO SCH (08:34)
[2018-01-12] MEDS: FOLIC ACID 1 MG TABLET PO SCH (08:35)
[2018-01-12] MEDS: METOPROLOL TARTRATE 25 MG TABLET PO SCH ×2 (08:35→20:24)
[2018-01-12] MEDS: DIAZEPAM 5 MG TABLET PO SCH ×3 (08:35→20:22)
[2018-01-12] MEDS: DOXYCYCLINE HYCLATE 100 MG TABLET PO SCH (08:35)
[2018-01-12] MEDS: METHOCARBAMOL 750 MG TABLET PO PRN ×2 (08:35→20:24)
[2018-01-12] MEDS: BUPRENORPHINE HCL 2 MG TAB.SUBL SL SCH ×3 (08:35→20:24)
[2018-01-12] MEDS: GABAPENTIN 100 MG CAPSULE PO SCH ×3 (08:35→16:17)
[2018-01-12] MEDS: LISINOPRIL 20 MG TABLET PO SCH (08:35)
--- NOTE | 2018-01-12 08:43 | NUR ---
Robaxin 750 mg PO given/MD Communication: Temp Patient's temperature 99.5, after cooling measures, administration of Motrin and Tylenol during the night. Patient complains of feeling feverish with complain of generalized body aches of 6/10. He states "I had a tough night and I am uncomfortable." Notified Dr. Guerrero with orders for STAT CXR, UA, CBC, CMP and Blood culture. Orders noted and carried out. is away from the computer and is unable to enter in orders at this time. Will continue to monitor and provide cooling measures.
--- NOTE | 2018-01-12 09:35 | NUR ---
Re-assessment: Robaxin Patient verbalizes relief from generalized myalgia. He states that his PL is now 310.
[2018-01-12 10:03] LABS: *BILIRUBIN,URIN NEGATIVE (NEGATIVE); *BLOOD, URINE NEGATIVE (NEGATIVE); *CLARITY,URINE CLEAR (CLEAR); *COLOR,URINE YELLOW (YELLOW); *KETONES,URINE NEGATIVE (NEGATIVE); *PROTEIN,URINE NEGATIVE (NEGATIVE); *UROBILINOGEN,URINE 0.2 E.U./dl (NORMAL); BACTERIA,URINE FEW /HPF (NONE SEEN); LEUKOCYTE ESTERASE ,URINE NEGATIVE (NEGATIVE); NITRITE, URINE NEGATIVE (NEGATIVE); RBC,URINE 0-3 /HPF (0-3); SQUAMOUS EPITHELIAL CELL,UR FEW /HPF (NONE SEEN); UGLUCOSE NEGATIVE (NEGATIVE); WBC,URINE 0-3 /HPF (0-3)
[2018-01-12 10:26] LABS: BASOPHILS # (AUTO) 0.1 K/uL (0.0-8.0); BASOPHILS % (AUTO) 0.5 % (0.0-2.0); EOSINOPHILS # (AUTO) 0.1 K/uL (0.0-0.7); EOSINOPHILS % (AUTO) 0.8 % (0.0-7.0); HEMATOCRIT 43.6 % (36.7-47.1); LYMPHOCYTES # (AUTO) 1.4 K/uL (20.0-40.0); LYMPHOCYTES % (AUTO) 10.8 % (20.5-51.5); MEAN CORPUSCULAR HEMOGLOBIN 32.4 uug (23.8-33.4); MEAN CORPUSCULAR HGB CONC 34 g/dL (32.5-36.3); MEAN CORPUSCULAR VOLUME 94.4 fL (73.0-96.2); MONOCYTES # (AUTO) 0.9 K/uL (2.0-10.0); MONOCYTES % (AUTO) 6.7 % (0.0-11.0); NEUTROPHILS # (AUTO) 10.5 K/uL (1.8-8.9); NEUTROPHILS % (AUTO) 81.2 % (38.5-71.5); PLATELET COUNT (AUTO) 158 K/uL (152-348); RED BLOOD CELL COUNT(AUTO) 4.62 MIL/uL (4.06-5.63); WHITE BLOOD COUNT (AUTO) 12.9 K/uL (3.6-10.2)
[2018-01-12 10:36] LABS: CREATININE 1.4 mg/dL (0.6-1.3); POTASSIUM 4.9 mmol/L (3.5-5.1)
[2018-01-12 10:41] LABS: BILIRUBIN,TOTAL 0.5 mg/dL (0.2-1.0); TOTAL PROTEIN, SERUM 7.3 g/dL (6.4-8.2)
--- NOTE | 2018-01-12 10:59 | NUR ---
MD Communication: Labs/CXR results Dr. Guerrero notified of patient's labs and CXR results. Per MD, he will examine the patient and will enter in orders if needed. Will continue to monitor. Current temp at this time is at 98.6 oral.
--- NOTE | 2018-01-12 11:01 | NUR ---
New Orders: US MD Guerrero ordered for patient to have abdominal US due to elevated lipase and fever. Orders noted and carried out.
[2018-01-12 12:00] VITALS: BP 98/61
--- NOTE | 2018-01-12 12:22 | NUR ---
The patient is not NPO. He had breakfast and was having ice cream when the tech arrived. Unable to perform abdominal ultrasound. Dr. Guerrero and RN Jessy noted. Dr. Guerrero requested to perform the exam tomorrow morning.
--- NOTE | 2018-01-12 12:42 | NUR ---
COWS/CIWA Assessment: COWS 14/CIWA 14, patient continues to present with s/s of withdrawal m/b myalgia, anxiety, agitation, fatigue, malaise, restlessness, facial flushing, gross tremors, decreased appetite, dyspepsia and increased emotional amplitude. Patient took a shower and complete bed linen was changed. Encouraged oral fluid intake. Support provided. Will continue to monitor.
[2018-01-12 13:44] LABS: AMYLASE 192 U/L (25-115); LIPASE 509 U/L (73-393)
[2018-01-12] MEDS ORDERED: IV NORMAL SALINE 500 ML BAG IV PRN (15:45)
--- NOTE | 2018-01-12 15:45 | NUR ---
IV: Patient education provided prior to procedure. IV access to patient's left upper arm obtained with 2 attempts. Utilized 23g catheter. IV line to patient's left upper arm patent and intact with good blood return. Access obtained via aseptic technique. Secured with tape. All needs met and attended. Will continue to monitor. Addendum: 01/12/18 at 1820 by MARSHALL ALICIA LVN Patient tolerated procedure well.
[2018-01-12 16:00] VITALS: BP 116/68
[2018-01-12] MEDS ORDERED: IV NS 1000 ML 1,000 ML IV ONE (16:15)
--- NOTE | 2018-01-12 16:45 | NUR ---
/WA Assessment: / 14, patient continues to present with s/s of withdrawal m/b myalgia, anxiety, agitation, fatigue, malaise, facial flushing, gross tremors, decreased appetite, dyspepsia and increased emotional amplitude. Patient continues to worry about his girlfriend and making a phone call. Informed case management to assist. Encouraged oral fluid intake. Support provided. Will continue to monitor.
--- NOTE | 2018-01-12 19:18 | NUR ---
End of Shift Notes: Patient continues to be on 5-day Subutex and 5-day Valium taper as ordered. No adverse reactions noted. VS monitored closely. Patient was noted with low grade fever in AM. Cooling measures provided with help. CXR, UA done. MD aware or results. Patient is to have abdominal US in AM and will be NPO post midnight tonight. Patient continues to be on IVF for hydration of NS at 125cc/hr. IV site to left upper forearm patent and intact. Flushed adequately per unit protocol. Withdrawal symptoms were closely monitored. Initial COWS 15/CIWA 15, patient presented with facial flushing, diaphoresis, restlessness, gross tremors, bone/joint aches, myalgia, pupil dilation, nasal stuffiness, abdominal cramping, anxiety, agitation, malaise, fatigue, headache, paresthesia, and anhedonia, constant worry, dyspepsia, arthralgia, decreased appetite and increased emotional amplitude. Medicated patient with Robaxin at 0835 with help after 1 hour. Last COWS 12/CIWA 14. Oral fluids encouraged. Patient was unable to participate in group and activities due to his withdrawal symptoms, although encouraged. Appetite poor. All needs met and attended. Will continue to monitor closely.
--- NOTE | 2018-01-12 19:30 | NUR ---
START OF SHIFT Pt is a 72 y/o male admitted on 01/08/18 for opioid and benzo withdrawal. Pt is on a 5 day Subutex and 5 day Valium taper, tolerating well. Last COWS 12 and CIWA 14 and PRN Robaxin administered during day shift. Pt had fever, last temperature 98.6. CBC, UA, Chest x-ray and blood culture ordered. UA and chest x-ray negative, blood culture pending. Pt is NPO after midnight for abdominal US tomorrow. IVF running at 125 ml/hr. Pt has IV in left upper arm with 23 g. No pain, swelling, redness at IV site. Upon assessment pt presents with anxiety, restlessness, flushed skin, intermittent tremors, intermittent sweats, decreased appetite, chills, fatigue, disheveled appearance, unkempt room. Medications due. Safety measures in place. Call light within reach. Will continue to monitor.
[2018-01-12 20:00] VITALS: BP 125/59
--- NOTE | 2018-01-12 20:00 | NUR ---
COWS 11 AND CIWA 11 Pt presents with anxiety, restlessness, flushed skin, body aches, intermittent tremors, intermittent sweats, decreased appetite, chills, fatigue, disheveled appearance, and unkempt room. IVF running at 125 ml/hr.
[2018-01-12] MEDS: MIRTAZAPINE 15 MG TABLET PO SCH (20:22)
[2018-01-12] MEDS: CLONIDINE HCL 0.1 MG TABLET PO PRN (20:23)
--- NOTE | 2018-01-12 20:24 | NUR ---
PRN ROBAXIN ADMINISTRATION pr. c/o body aches 12/18, mostly in legs. Safety measures in place. Call light within reach. Will continue to monitor.
--- NOTE | 2018-01-12 21:24 | NUR ---
PRN ROBAXIN REASSESSMENT Pt. laying in bed with eyes closed, medication noted effective. Safety measures in place, call light within reach. Will continue to monitor.
--- NOTE | 2018-01-13 | NUR ---
COWS/CIWA DEFERRED AND V/S REFUSED Pt. laying in bed with eyes closed, COWS/CIWA deferred, to be assessed when pt. is awake per orders. V/S refused. Respirations even and unlabored. Safety measures in place. Call light within reach. Will continue to monitor.
--- NOTE | 2018-01-13 05:30 | NUR ---
COWS 10 AND CIWA 10 Pt woke up and reports difficulty staying asleep, reports tossing and turning. Pt presents with anxiety, restlessness, intermittent sweats, intermittent tremors.
--- NOTE | 2018-01-13 07:26 | NUR ---
Start of shift Patient is a 72 yr old male who was [facility] 01[facility] for a medically supervised withdrawal from Opiates ( Methadone), he has been placed on a 5 day Valium/Subutex taper and this is day 5. He has been NPO since midnight and is scheduled for an AM abdominal Ultrasound due to high amylase and Lipase levels. he has a 23 G Saline Lock in LUE due to being unable to tolerate food and fluids yesterday, per report he was able to eat snacks last night and drink adequate fluids. he is awake in his room at the moment requesting to make a phone call, ensured him I would put his name on phone list and the bilingual patient support caseworker would allow him a call later today. PRN medications given on PM shift : Robaxin for muscle aches, he slept for 5 hours and last COWS 10 and CIWA 10. Continue to follow MD plan of care and offer support as needed.
--- NOTE | 2018-01-13 07:29 | NUR ---
END OF SHIFT NOTE Pt is a 72 y/o male admitted on 01/08/18 for opioid and benzo withdrawal. Pt is on a 5 day Subutex and 5 day Valium taper, tolerating well. Pt NPO after midnight for abdominal US today. Pt has IV in left upper arm with 23 g. No pain, swelling, redness at IV site. Pt. presented with anxiety, restlessness, flushed skin, intermittent tremors, intermittent sweats, decreased appetite, body aches, chills, fatigue, disheveled appearance, unkempt room. Scheduled medications and PRN Robaxin administered, effective in s/s of withdrawal AEB CIWA 11 and COWS 11 lowered to CIWA 10 and COWS 10 during shift. Pt. slept 5 hrs. Intake 800 mls, void x 4, stool x 1. Safety measures in place. Call light within reach. Pt. needs have been met. Endorsed to day shift nurse.
[2018-01-13 08:00] VITALS: BP 144/71
[2018-01-13] MEDS: THIAMINE HCL 100 MG TABLET PO SCH (08:23)
[2018-01-13] MEDS: LISINOPRIL 20 MG TABLET PO SCH (08:23)
[2018-01-13] MEDS: GABAPENTIN 100 MG CAPSULE PO SCH ×3 (08:23→16:50)
[2018-01-13] MEDS: FOLIC ACID 1 MG TABLET PO SCH (08:23)
[2018-01-13] MEDS: DOXYCYCLINE HYCLATE 100 MG TABLET PO SCH (08:23)
[2018-01-13] MEDS: DIAZEPAM 5 MG TABLET PO SCH ×2 (08:23→20:11)
[2018-01-13] MEDS: METOPROLOL TARTRATE 25 MG TABLET PO SCH ×2 (08:24→20:12)
[2018-01-13] MEDS: MULTIVITAMINS,THERAPEUTIC TABLET PO SCH (08:29)
--- NOTE | 2018-01-13 08:30 | NUR ---
COWS 10 / CIWA 10 Patients withdrawal symptoms present as agitation, irritability, anxiety, restlessness, bilateral hand tremors and stuffy nose. scheduled AM medications given and no requests for any PRN medication.
[2018-01-13] MEDS ORDERED: BUPRENORPHINE HCL 2 MG TAB.SUBL SL SCH (09:00)
--- NOTE | 2018-01-13 09:00 | NUR ---
Abdominal Ultrasound performed
[2018-01-13 12:00] VITALS: BP 111/59
[2018-01-13 12:00] LABS: BASOPHILS % (AUTO) 0.6 % (0.0-2.0); EOSINOPHILS # (AUTO) 0.2 K/uL (0.0-0.7); EOSINOPHILS % (AUTO) 2.8 % (0.0-7.0); HEMATOCRIT 42.4 % (36.7-47.1); HEMOGLOBIN 14.5 g/dL (12.5-16.3); LYMPHOCYTES # (AUTO) 1.9 K/uL (20.0-40.0); LYMPHOCYTES % (AUTO) 26.8 % (20.5-51.5); MEAN CORPUSCULAR HEMOGLOBIN 32.5 uug (23.8-33.4); MEAN CORPUSCULAR HGB CONC 34 g/dL (32.5-36.3); MEAN CORPUSCULAR VOLUME 95.2 fL (73.0-96.2); MONOCYTES # (AUTO) 0.5 K/uL (2.0-10.0); MONOCYTES % (AUTO) 7.2 % (0.0-11.0); NEUTROPHILS # (AUTO) 4.3 K/uL (1.8-8.9); NEUTROPHILS % (AUTO) 62.6 % (38.5-71.5); PLATELET COUNT (AUTO) 129 K/uL (152-348); RED BLOOD CELL COUNT(AUTO) 4.46 MIL/uL (4.06-5.63); WHITE BLOOD COUNT (AUTO) 6.9 K/uL (3.6-10.2)
--- NOTE | 2018-01-13 12:00 | NUR ---
COWS 10/ CIWA 11 Patient presents with anxiety, irritation, red flushed face, yawning, restlessness and chills.
[2018-01-13 12:14] LABS: BILIRUBIN,DIRECT 0.1 mg/dL (0.0-0.2); BILIRUBIN,TOTAL 0.4 mg/dL (0.2-1.0); POTASSIUM 4.7 mmol/L (3.5-5.1); TOTAL PROTEIN, SERUM 7.3 g/dL (6.4-8.2)
[2018-01-13 12:28] LABS: THYROID STIMULATING HORMONE 0.854 mIU/mL (0.358-3.740)
[2018-01-13] MEDS: METHOCARBAMOL 750 MG TABLET PO PRN ×2 (13:12→20:10)
[2018-01-13] MEDS: IBUPROFEN 600 MG TABLET PO PRN (13:12)
--- NOTE | 2018-01-13 13:12 | NUR ---
PRN Motrin 600 MG PO and Robaxin 750 MG PO given for lower leg cramps 11/18 will reassess
--- NOTE | 2018-01-13 14:12 | NUR ---
PRN Reassess Robaxin and Motrin effective, lower leg pain/ cramps now 07/21
[2018-01-13 16:00] VITALS: BP 101/56
--- NOTE | 2018-01-13 16:00 | NUR ---
COWS 10/ CIWA 11 Patient presents with anxiety, irritation, red flushed face, yawning, restlessness and chills, muscle aches on lower extremities and lethargy. Robaxin 750mg PO and Motrin 600 MG PO given for myalgia with positive results.
--- NOTE | 2018-01-13 18:55 | NUR ---
End Of Shift: Patient is a 72 yr old male who was admitted to [facility] on 01/08/18 for a medically supervised withdrawal from Opiates ( Methadone) and Benzodiazepines ( Xanax and Valium), he has been placed on a 5 day Valium/ Subutex taper and this is day 5. Today he had an abdominal ultrasound due to increased Amylase and Lipase values, report shows possible pancreatitis. PRN medications given on this shift : Robaxin 750 MG PO and Motrin 600 MG PO for lower leg aches. Patients withdrawal symptoms include Flushed skin, lethargy, increased agitation, myalgia, stuffy nose , restlessness and chills. He has a 23G Saline Lock in LUE flushed and patent. He had a fluid intake of 1900 ML, 2 Voids and 0 BM. Last COWS 10 and CIWA 11 @ 1600. Continue to follow MD plan of care and offer support as needed. Endorsed to animal park code enforcement officer.
--- NOTE | 2018-01-13 19:30 | NUR ---
Start of Shift Endorsement received from day RN. Pt admitted 01/08/18 for medically managed withdrawal from Methodone and Xanax. Pt is listed as a full code, NKA's and on a cardiac diet. Pt ending 5 day Valium taper tonight, Subutex taper d/c'd. Pt presents with flat affect, avoidant eye contact, disheveled appearance with uncombed hair. Pt states he showered prior day. Heplock in left AC intact. Pt with c/o anxiety, restlessness, leg pain, dyspepsia, difficulty concentrating. Room also disheveled with clothing strewn about and on floor. Pt continues to wear unit T-shirt and pajama bottoms. Will continue to monitor for duration of shift and promptly attend to all s/sx's w/d or distress.
[2018-01-13 20:00] VITALS: BP 111/59
--- NOTE | 2018-01-13 20:00 | NUR ---
Evening Rounds COWS 9, CIWA 12 amb abdominal cramps, anxiety and agitation/restlessness, anhedonia, arthralgias, depression, diaphoresis, difficulty concentrating and sleeping, dyspepsia, fatigue and malaise, flushed face, generalized discomfort and myoclonic jerks.
[2018-01-13] MEDS: MIRTAZAPINE 15 MG TABLET PO SCH (20:11)
[2018-01-13] MEDS: TRAZODONE 50 MG TABLET PO PRN (20:11)
--- NOTE | 2018-01-13 20:11 | NUR ---
PRN Meds Trazodone 50mg PO for sleep and Robaxin 750mg PO for restless legs given. Will continue to monitor and promptly attend to all s/sx's w/d or distress
--- NOTE | 2018-01-13 21:00 | NUR ---
Med W/H Lopressor 25mg PO w/h due to decreased HR (54), BP 111/59, pt asymptomatic. Will continue to monitor and promptly attend to all s/sx's w/d or distress.
--- NOTE | 2018-01-13 21:11 | NUR ---
PRN Reassessment Trazodone 50mg PO for sleep and Robaxin 750mg PO for restless legs given 1 hour prior. At present pt is sleeping, RR 14, even and nonlabored. Meds effective Addendum: 01/13/18 at 2229 by ARIADNA HASSAN RN Duplicate
[2018-01-14] VITALS: BP 86/54
--- NOTE | 2018-01-14 | NUR ---
Midnight Rounds VS's obtained, pt hypotensive at BP 86/54, bradycardic at HR 50. COWS and CIWA deferred r/t pt somnalence. Will continue to monitor and promptly attend to all s/sx's w/d or distress.
[2018-01-14 04:00] VITALS: BP 91/58
--- NOTE | 2018-01-14 04:00 | NUR ---
0400 Rounds VS's obtained, HR bradycardic at 50, BP 91/58. COWS and CIWA deferred r/t pt somnalance. Will continue to monitor and promptly attend to all s/sx's w/d or distress.
--- NOTE | 2018-01-14 07:07 | NUR ---
End of Shift Endorsement given to day nurse. Pt admitted 01/08/18 for medically managed withdrawal from Methadone and Xanax. Pt is listed as a full code, NKA's and on a cardiac diet. Both Valium and Subutex tapers now concluded. Last COWS was 9, CIWA 12 at 2000 hours, Pt slept for 9 hours with 1000 intake, and 3 voids. PRN's for shift included Trazodone for sleep, and Robaxin for restless legs and generalized discomfort. Lopressor 25mg PO was withheld due to HR of 54 and BP of 111/59. Pt encouraged to continue hydration. Pt remains disheveled with poor dental hygiene, poor eye contact. Encouragement required to straighten room and dispose of trash. Full safety precautions remain in place, with bed in lowest position, locked and siderails up x 2, HOB at 45 degrees, call sweet within reach, and frequent rounding.
--- NOTE | 2018-01-14 07:39 | NUR ---
Start of Shift Patient is a 72 yr old male who was admitted to [facility] on 01/08/18 for a medically supervised withdrawal from Opiates ( Methadone) and benzodiazepines ( Xanax), he has completed a 5 day Subutex/Valium taper and will be discharged tomorrow 01/15/18. PRN medications given on PM shift : Trazodone for sleep and Robaxin for muscle aches, he slept for 9 hours and last COWS 9 and CIWA 12. He still has a patent Saline lock on LUE. He is asleep at this time, breathing even and unlabored, side rails up x2, call light within reach. Continue to follow MD plan of care and offer support as needed.
[2018-01-14 07:52] LABS: BASOPHILS % (AUTO) 0.4 % (0.0-2.0); EOSINOPHILS # (AUTO) 0.2 K/uL (0.0-0.7); EOSINOPHILS % (AUTO) 3.8 % (0.0-7.0); LYMPHOCYTES # (AUTO) 2.5 K/uL (20.0-40.0); LYMPHOCYTES % (AUTO) 39.5 % (20.5-51.5); MEAN CORPUSCULAR HEMOGLOBIN 32.8 uug (23.8-33.4); MEAN CORPUSCULAR HGB CONC 35 g/dL (32.5-36.3); MEAN CORPUSCULAR VOLUME 94.9 fL (73.0-96.2); MONOCYTES # (AUTO) 0.7 K/uL (2.0-10.0); MONOCYTES % (AUTO) 10.7 % (0.0-11.0); NEUTROPHILS # (AUTO) 2.9 K/uL (1.8-8.9); NEUTROPHILS % (AUTO) 45.6 % (38.5-71.5); PLATELET COUNT (AUTO) 118 K/uL (152-348); RED BLOOD CELL COUNT(AUTO) 3.98 MIL/uL (4.06-5.63); WHITE BLOOD COUNT (AUTO) 6.3 K/uL (3.6-10.2)
[2018-01-14 08:00] VITALS: BP 132/82
--- NOTE | 2018-01-14 08:00 | NUR ---
COWS 9/CIWA 11 Patients withdrawal symptoms present as restlessness, stuffy nose, irritability, muscle cramps and depression
[2018-01-14 08:08] LABS: HEMOGLOBIN 13.1 g/dL (12.5-16.3)
[2018-01-14 08:09] LABS: HEMATOCRIT 37.8 % (36.7-47.1)
[2018-01-14] MEDS: GABAPENTIN 100 MG CAPSULE PO SCH ×3 (08:33→16:43)
[2018-01-14] MEDS: MULTIVITAMINS,THERAPEUTIC TABLET PO SCH (08:34)
[2018-01-14] MEDS: DOXYCYCLINE HYCLATE 100 MG TABLET PO SCH (08:34)
[2018-01-14] MEDS: THIAMINE HCL 100 MG TABLET PO SCH (08:34)
[2018-01-14] MEDS: METOPROLOL TARTRATE 25 MG TABLET PO SCH ×2 (08:34→20:40)
[2018-01-14] MEDS: FOLIC ACID 1 MG TABLET PO SCH (08:34)
[2018-01-14] MEDS: LISINOPRIL 20 MG TABLET PO SCH (08:35)
[2018-01-14 12:00] VITALS: BP 110/65
[2018-01-14] MEDS: METHOCARBAMOL 750 MG TABLET PO PRN ×2 (12:34→20:39)
[2018-01-14] MEDS: IBUPROFEN 600 MG TABLET PO PRN (12:34)
--- NOTE | 2018-01-14 12:35 | NUR ---
PRN Robaxin 750 MG PO given for muscle aches Motrin 600 MG PO given for facial discomfort due to Rosacea
--- NOTE | 2018-01-14 13:34 | NUR ---
Saline Lock removed LUE
--- NOTE | 2018-01-14 13:35 | NUR ---
PRN Reassess Patient states his face is burning up, it is red and raw looking due to Rosacea outbreak, awaiting MD order for topical ointment. Patient is on Doxycycline for it.
--- NOTE | 2018-01-14 13:51 | NUR ---
COWS 9/CIWA 10 Patients withdrawal symptoms present as restlessness, stuffy nose, irritability and fatigue.
[2018-01-14 16:00] VITALS: BP 122/72
--- NOTE | 2018-01-14 16:00 | NUR ---
COWS 8/CIWA 10 Patients withdrawal symptoms present as restlessness, stuffy nose, irritability and fatigue.
[2018-01-14] MEDS ORDERED: DOXY100T2 PO (17:25)
[2018-01-14] MEDS ORDERED: METH-406 PO (17:25)
[2018-01-14] MEDS ORDERED: TRAZ-213 PO (17:25)
--- NOTE | 2018-01-14 18:52 | NUR ---
End Of Shift: Patient is a 72 yr old male who was admitted to [facility] on 01/08/18 for a medically supervised withdrawal from Opiates ( Methadone) and Benzodiazepines ( Xanax and Valium), he has completed a 5 day Valium/Subutex taper. PRN medications given on this shift : Robaxin 750 MG PO and Motrin 600 MG PO for lower leg aches. Patients withdrawal symptoms include Flushed skin, lethargy, increased agitation, myalgia, stuffy nose , restlessness and chills. He had a fluid intake of 2100 ML, 3 Voids and 0 BM. Last COWS 8 and CIWA 10 @ 1600. He will be discharged to home in the AM 01/15/18. Continue to follow MD plan of care and offer support as needed. Endorsed to retail shift manager.
--- NOTE | 2018-01-14 19:30 | NUR ---
Start of Shift Endorsement received from day nurse. Pt admitted 01/08/18 for medically managed withdrawal from Xanax and Methadone. Pt is listed as a full code, with NKA's and on a cardiac diet. Pt is to be d/c'd to home in a.m. Pt claiming 5/10 pain from B/A's and generalized discomfort. VS's stable, HR bradycardic, will w/h Lopressor. Pt excited about d/c in am but remains depressed, more eye contact than in previous shifts. Accepting time period to recover from Methadone. Pt out of bed for first time this nurse has seen. Room remains disheveled with multiple bed covers/blankets, clothes strewn about and empty drink and food containers. Will continue to monitor pt for duration of shift, promptly attending to all s/sx's of w/d or distress.
[2018-01-14 20:00] VITALS: BP 128/72
--- NOTE | 2018-01-14 20:00 | NUR ---
Evening Rounds COWS 8, CIWA 10, aeb fine tremors, anxiety and restlessness, diaphoresis, depression, generalized discomfort and arthralgias, malaise and fatigue, difficulty concentrating and sleeping/insomnia, anhedonia.
[2018-01-14] MEDS: TRAZODONE 50 MG TABLET PO PRN (20:38)
--- NOTE | 2018-01-14 20:38 | NUR ---
PRN Meds Trazodone 50mg PO for sleep and Robaxin 750mg PO for generalized discomfort/restless legs given. Will continue to monitor pt and reassess in 1 hour.
[2018-01-14] MEDS: MIRTAZAPINE 15 MG TABLET PO SCH (20:39)
--- NOTE | 2018-01-14 21:38 | NUR ---
PRN Reassessment Trazodone 50mg PO for sleep and Robaxin 750mg PO for generalized discomfort/restless legs given 1 hour prior. At present pt is sleeping, RR 14, even and nonlabored. Meds effective.
[2018-01-15] VITALS: BP 96/48
--- NOTE | 2018-01-15 | NUR ---
Midnight Rounds VS's obtained/stable. COWS/CIWA deferred r/t pt somnalance. Will continue to monitor and promptly attend to all s/sx's w/d or distress.
[2018-01-15 04:00] VITALS: BP 113/61
--- NOTE | 2018-01-15 04:00 | NUR ---
0400 Rounds VS's obtained/stable. COWS/CIWA deferred r/t pt somnalance. Will continue to monitor and promptly attend to all s/sx's w/d or distress.
--- NOTE | 2018-01-15 07:30 | NUR ---
Start of Shift Polystyrene Bead Molder received report on 72 year old male admitted to [facility] on 01/08/18 and scheduled to discharge back home at 1130, with family picking up pt. Pt was admitted for medical management of Benzodiazepine and Opiate withdrawals. Pt endorse NKA, full code and a cardiac diet. PMH to inclue Scoliosis, Hepatitis C. HTN and chronic back pain. PPH of Major Depressive Disorder and a history of Methadone overdose and placement on 5150. Pt with no history of seizures. Pt has completed his Subutex and Valium tapers with last CIWA 10 and COWS 8, per NOC report. Pt administered Trazodone(insomnia) and Robaxin(muscle spasms) as PRN medications on NOC, per report. Polystyrene Bead Molder encounters pt in pts room with pt resting. Pt is A/O x4 and able to make needs known. Linear thought process and clear speech pattern. Calm and cooperative, I am ready to face my lfe, Pt is hopeful, but anxious about discharge. Pt with a blunted affect and depressed mood, poor eye contact Pt was educated on discharge process. Bed in low position with wheels locked and side rails up x2. Will continue to monitor, support and encourage according to plan of care.
--- NOTE | 2018-01-15 07:33 | NUR ---
End of Shift Endorsement given to day nurse. Pt admitted 01/08/18 for medically managed withdrawal from Xanax and Methadone. Pt is listed as a full code, with NKA's and on a cardiac diet. Pt is to be d/c'd to home this a.m. PRN's for shift included Trazodone and Robaxin, with Lopressor being w/h for evening meds r/t HR 58, BP 128/72. Pt slept for 6 hours with 796 mls intake and 2 voids. Pt w/d symptoms for night exhibited as anxiety and restlessness, fine tremors, depression, fatigue/malaise, diaphoresis and chills,
--- NOTE | 2018-01-15 08:00 | NUR ---
CIWA 4/COWS 4 Pt is anxious and has tremors, pt is preparing for discharge. Will continue to monitor, support and encourage according to plan of care.
[2018-01-15 08:11] VITALS: BP 122/76
[2018-01-15] MEDS: GABAPENTIN 100 MG CAPSULE PO SCH (09:11)
[2018-01-15] MEDS: DOXYCYCLINE HYCLATE 100 MG TABLET PO SCH (09:11)
[2018-01-15] MEDS: FOLIC ACID 1 MG TABLET PO SCH (09:11)
[2018-01-15] MEDS: THIAMINE HCL 100 MG TABLET PO SCH (09:11)
[2018-01-15] MEDS: MULTIVITAMINS,THERAPEUTIC TABLET PO SCH (09:11)
[2018-01-15] MEDS: METOPROLOL TARTRATE 25 MG TABLET PO SCH (09:11)
[2018-01-15 09:12] VITALS: BP 122/76
[2018-01-15] MEDS: LISINOPRIL 20 MG TABLET PO SCH (09:12)
--- NOTE | 2018-01-15 11:49 | NUR ---
Discharge Pt educated on discharge diagnosis and educational material provided. Pt provided with copies of all signed paperwork, as well as copies of MD progress notes and labs. Pt educated on name, timing, route, dosage and indication of all prescribed medications. Pt is provided with medication prescriptions. Pt educated on importance of continued follow-up and sobriety, as well as medication compliance. Pt with a flat affect and depressed mood. Pt with linear thought process and clear speech pattern. Pt A/O x4 and makes needs known. Pt is anxious and restless and nervous about transition. Pt denies any SI/HI, A/VH or any other associated symptoms. Pt is escorted to main lobby to awaiting family for transport to pt's residence.
== END 2018-01-15 11:49 | disposition home or self-care (01) | DRG 895 ==
LOC: SRC 17:50
PROVIDERS: ADMIT Family Medicine Addiction Medicine; ATTEND Family Medicine Addiction Medicine
PROC: HZ2ZZZZ Detoxification Services for Substance Abuse Treatment (ICD-10-PCS; principal; 2018-01-08)
PROC: HZ31ZZZ Individual Counseling for Substance Abuse Treatment, Behavioral (ICD-10-PCS; 2018-01-10)
PROC: HZ5 Substance Abuse Treatment, Individual Psychotherapy (ICD-10-PCS; 2018-01-13)
DX: F11.23 Opioid dependence with withdrawal (principal); K85.90 Acute pancreatitis without necrosis or infection, unspecified; F13.230 Sedative, hypnotic or anxiolytic dependence with withdrawal, uncomplicated; E87.6 Hypokalemia; F41.1 Generalized anxiety disorder; Z86.19 Personal history of other infectious and parasitic diseases; G89.29 Other chronic pain; M54.5 Low back pain; Z91.89 Other specified personal risk factors, not elsewhere classified; F32.9 Major depressive disorder, single episode, unspecified; L71.9 Rosacea, unspecified; I10 Essential (primary) hypertension; E86.0 Dehydration
CPT/HCPCS: 36415; 71045; 76700; 80307; 80346; 80361; 83690; 83735; 84153; 84443; 85025; 85651; 86592; 86705; 86803; 87040; 87086; 87340; 87806; A4663; G0480; J7030; J7040; Q0163